=== PATIENT | female | born 1975 | race Caucasian/White ===

== ENCOUNTER 2017-11-27 06:48 | Outpatient (CLI) | payer MEDICAID | END 2017-11-27 06:49 | disposition EMS.NT | LOC: EMS 06:48 | PROVIDERS: ATTEND Surgery | DX: M25.561 Pain in right knee (principal); W18.30XA Fall on same level, unspecified, initial encounter; Y93.41 Activity, dancing ==

== ENCOUNTER 2017-11-27 08:01 | Emergency (ER) | payer MEDICAID ==
[2017-11-27] MEDS ORDERED: oxyCODONE 5 MG TABLET PO STA (08:10)
--- NOTE | 2017-11-27 08:15 | ED Physician Documentation ---
History of Present Illness - Stated complaint Stated Complaint: R KNEE INJ - Chief complaint Chief Complaint: Ext Problem - Additonal information Additional information: hx from pt 42 f was intoxicated and dancing last night and fell on her knee - does not recall exact mechanism this AM noted swelling ind increased pain denies any other injury denies Review of Systems : denies: Now EGA Musculoskeletal: reports: Joint pain, Pain with weight bearing PD PAST MEDICAL HISTORY - Present Medications Home Medications: Ambulatory Orders Medication Instructions Recorded Confirmed Ibuprofen [Motrin] 400 mg PO Q6H PRN #30 tablet 11/27/17 Oxycodone HCl/Acetaminophen 1 each PO Q6HR PRN #15 tablet 11/27/17 [Percocet 5-325 mg Tablet] - Allergies Allergies/Adverse Reactions: Allergies Allergy/AdvReac Type Severity Reaction Status Date / Time No Known Drug Allergies Allergy Verified 11/27/17 08:11 PD ED PE NORMAL - Vitals Vital signs reviewed: Yes - HEENT HEENT: Atraumatic - Cardiac Cardiac: RRR - Respiratory Respiratory: No respiratory distress, Clear bilaterally - Abdomen Abdomen: Non tender - Extremities Extremities: Other (R knee effusion, TTP popliteal regionm no quad tendon, patella, patellar tendon, prox tibia/fibula, medial or lateral joint lines TTP, no medial or lateral laxity, unable to assess ACL laxity 2/2 severity of pain, MSV intact) Results - Vitals Vitals: Vital Signs - 24 hr 11/27/17 11/27/17 08:09 10:11 Temperature 36.7 C Heart Rate 93 76 Respiratory 16 16 Rate Blood Pressure 129/93 H 115/79 O2 Saturation 98 98 Oxygen O2 Source Room air - Rads (name of study) knee Radiology: See rad report (acute non displacved comminuted patellar fx) PD MEDICAL DECISION MAKING - ED course ED course: comminuted non displaced patellar fx extensor mechanism intact unable to assess ACL PCL 2/2 swellign and pain but hx of landing directly on knee does not suggest injury to those structures MSV intact 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 Dr Villarreal who rec SL brace crutches fup ortho clinic even after toradol and oxycodone pt states pain is intolarable and primarily posterior concern for further injury not seen on plain film will MRI - MRI able to accomodate pt and do imaging in about one hr pt frustrated by wait and wants to leave and fup at home for further imaging understands my concern for injury to other structures Departure - Departure Disposition: Home, Self Care Clinical Impression: Patellar fracture Qualifiers: Encounter type: initial encounter Fracture type: closed Fracture morphology: comminuted Fracture alignment: nondisplaced Laterality: right Qualified Code(s) : S82.044A - Nondisplaced comminuted fracture of right patella, initial encounter for closed fracture Condition: Good Instructions: ED Fx Patella Prescriptions: Oxycodone HCl/Acetaminophen [Percocet 5-325 mg Tablet] 1 each PO Q6HR PRN #15 tablet PRN Reason: Severe Pain Ibuprofen [Motrin] 400 mg PO Q6H PRN #30 tablet PRN Reason: Pain Comments: You have a fractured knee cap Given the severity of pain I am concerned about injuries to other structures that cannot be seen on plain xrays I suggested we do a MRI but you have declined to have that test today Please follow up with orthopedics back home in [place] Wednesday if possible Wear the brace at all times - you want to keep your leg straight so the fracture pieces do not become displaced Ice and elevation to decrease the swelling
--- NOTE | 2017-11-27 09:14 | XRAY Report ---
EXAM: RIGHT KNEE RADIOGRAPHY EXAM DATE: 11/27/2017 08:44 AM. CLINICAL HISTORY: Fell on knee, posterior pain, effusion. COMPARISON: None. TECHNIQUE: 5 views. FINDINGS: Bones: Comminuted fracture of the patella with up to 3 mm diastasis. The fracture lines are primarily in the transverse plane. No other fracture. Joints: Large suprapatellar effusion. No dislocation. Soft Tissues: Regional soft tissue swelling. IMPRESSION: Acute, comminuted patellar fracture. [facility] Referring Provider Line: [phone] SITE ID: [id number]
[2017-11-27] MEDS ORDERED: KETOROLAC 60 MG/2 ML VIAL IM STA (09:17)
[2017-11-27] MEDS ORDERED: MORPHINE 2 MG/ML SYRINGE IM STA (09:58)
[2017-11-27 10:12] VITALS: BP 115/79
== END 2017-11-27 10:47 | disposition home or self-care (01) ==
LOC: ED 08:01
DX: S82.044A Nondisplaced comminuted fracture of right patella, initial encounter for closed fracture (principal); W22.09XA Striking against other stationary object, initial encounter; W18.30XA Fall on same level, unspecified, initial encounter; Y93.41 Activity, dancing
CPT/HCPCS: 73564; 96372; 99283; A9270; J2270